=== PATIENT | female | born 1990 | race Caucasian/White ===

== ENCOUNTER 2016-08-23 16:16 | Emergency (ER) | payer OTHER ==
[~2016-08-23] VITALS: Ht 165.1 cm; Wt 63.6 kg
[~2016-08-23 16:16] MED LIST: ABILIFY2 MG PO; ATIVAN 0.50.5 MG/TAB PO; CONCERTA36 MG PO; DESYREL 50MG50 MG PO; DEXTROAMPHETAMI10 M1 PO; DOXYCYCLINE 10100 MG; LAMICTAL200 MG PO; MINIPRESS2 MG PO; NAPROSYN 2250 MG/TAB PO; NORCO 325 MG-51 TAB PO; PROAIR HFA0.09 MG/AC INH; RISPERDAL2 MG PO
[2016-08-23 16:27] VITALS: TEMP 99.2
[2016-08-23] MEDS ORDERED: CLEOCIN HC150 MG/CAP PO (16:49)
[2016-08-23 16:56] VITALS: BP 116/75; PULSE 73
== END 2016-08-23 16:58 | disposition home or self-care (01) ==
LOC: COL.ER 16:16
DX: K04.7 Periapical abscess without sinus (principal)

== ENCOUNTER 2017-01-01 18:22 | Emergency (ER) | payer OTHER ==
[~2017-01-01] VITALS: Ht 165.1 cm; Wt 76.8 kg
[~2017-01-01 18:22] MED LIST changes: +CLEOCIN HC150 MG/CAP PO
[2017-01-01 18:24] VITALS: BP 134/86; PULSE 89; TEMP 98.6
[2017-01-01] MEDS ORDERED: 00186-0372-20 IH (18:38)
[2017-01-01] MEDS ORDERED: PROAIR HFA0.09 MG/AC IH (18:38)
== END 2017-01-01 18:55 | disposition home or self-care (01) ==
LOC: COL.ER 18:22
DX: J06.9 Acute upper respiratory infection, unspecified (principal); J45.909 Unspecified asthma, uncomplicated; F43.10 Post-traumatic stress disorder, unspecified; F31.9 Bipolar disorder, unspecified; F17.210 Nicotine dependence, cigarettes, uncomplicated

== ENCOUNTER 2017-01-25 10:45 | Emergency (ER) | payer OTHER ==
[~2017-01-25] VITALS: Ht 165.1 cm; Wt 72.7 kg
[~2017-01-25 10:45] MED LIST changes: +00186-0372-20 IH; +PROAIR HFA0.09 MG/AC IH
[2017-01-25 10:57] VITALS: BP 125/75; TEMP 98.2
[2017-01-25] MEDS ORDERED: PERIACTIN 4MG TA4 MG PO (11:13)
[2017-01-25 12:00] VITALS: PULSE 88
== END 2017-01-25 12:00 | disposition home or self-care (01) ==
LOC: COL.ER 10:45
DX: M25.571 Pain in right ankle and joints of right foot (principal)

== ENCOUNTER 2017-08-14 13:56 | Emergency (ER) | payer SELFPAY ==
[~2017-08-14] VITALS: Ht 167.6 cm; Wt 86.4 kg
[~2017-08-14 13:56] MED LIST changes: +CONCERTA54 MG PO; +MOBIC15 MG PO; +PERIACTIN 4MG TA4 MG PO; +ZITHROMAX Z PA250 MG PO
[2017-08-14 14:17] VITALS: BP 125/82; PULSE 80; TEMP 98
== END 2017-08-14 17:19 | disposition home or self-care (01) ==
LOC: COL.ER 13:56
DX: S63.501A Unspecified sprain of right wrist, initial encounter (principal); F31.9 Bipolar disorder, unspecified; F43.10 Post-traumatic stress disorder, unspecified; F41.9 Anxiety disorder, unspecified; J45.909 Unspecified asthma, uncomplicated; F90.9 Attention-deficit hyperactivity disorder, unspecified type; Z87.891 Personal history of nicotine dependence; X50.0XXA Overexertion from strenuous movement or load, initial encounter; Y92.89 Other specified places as the place of occurrence of the external cause

== ENCOUNTER 2018-01-07 13:55 | Emergency (ER) | payer OTHER ==
[~2018-01-07] VITALS: Ht 165.1 cm; Wt 90.0 kg
[2018-01-07 14:05] VITALS: BP 141/86; PULSE 93; TEMP 98.6
[2018-01-07] MEDS ORDERED: CATAPRES0.3 MG PO (14:09)
== END 2018-01-07 14:50 | disposition home or self-care (01) ==
LOC: COL.ER 13:55
DX: M77.02 Medial epicondylitis, left elbow (principal); F17.210 Nicotine dependence, cigarettes, uncomplicated; X50.0XXA Overexertion from strenuous movement or load, initial encounter

== ENCOUNTER 2018-07-07 14:03 | Emergency (ER) | payer OTHER ==
[~2018-07-07] VITALS: Ht 165.1 cm; Wt 81.8 kg
[~2018-07-07 14:03] MED LIST changes: +CATAPRES0.3 MG PO
[2018-07-07 14:16] VITALS: BP 135/87; TEMP 99
[2018-07-07] MEDS ORDERED: CLEOCIN HCL300 MG PO (15:14)
[2018-07-07 15:30] VITALS: PULSE 74
== END 2018-07-07 15:32 | disposition home or self-care (01) ==
LOC: COL.ER 14:03
DX: H92.01 Otalgia, right ear (principal); J45.909 Unspecified asthma, uncomplicated; F90.9 Attention-deficit hyperactivity disorder, unspecified type

== ENCOUNTER 2018-10-04 13:21 | Emergency (ER) | payer OTHER ==
[~2018-10-04] VITALS: Ht 165.1 cm; Wt 83.6 kg
[~2018-10-04 13:21] MED LIST changes: +CLEOCIN HCL300 MG PO
[2018-10-04 13:36] VITALS: BP 141/80; PULSE 86; TEMP 98.8
[2018-10-04] MEDS ORDERED: SINGULAIR 110 MG/TAB PO (16:26)
== END 2018-10-04 16:32 | disposition home or self-care (01) ==
LOC: COL.ER 13:21
DX: S83.92XA Sprain of unspecified site of left knee, initial encounter (principal); F43.10 Post-traumatic stress disorder, unspecified; F31.9 Bipolar disorder, unspecified; W00.0XXA Fall on same level due to ice and snow, initial encounter; Y92.009 Unspecified place in unspecified non-institutional (private) residence as the place of occurrence of the external cause
CPT/HCPCS: L1846

== ENCOUNTER 2019-03-05 00:21 | Emergency (ER) | payer OTHER ==
[~2019-03-05] VITALS: Ht 165.1 cm; Wt 88.6 kg
[~2019-03-05 00:21] MED LIST changes: +SINGULAIR 110 MG/TAB PO
[2019-03-05 00:33] VITALS: TEMP 98.7
[2019-03-05 01:48] VITALS: BP 133/93; PULSE 98
== END 2019-03-05 01:48 | disposition home or self-care (01) ==
LOC: COL.ER 00:21
DX: S60.221A Contusion of right hand, initial encounter (principal); F31.9 Bipolar disorder, unspecified; F90.9 Attention-deficit hyperactivity disorder, unspecified type; J45.909 Unspecified asthma, uncomplicated; F43.10 Post-traumatic stress disorder, unspecified; Z88.0 Allergy status to penicillin; Z87.891 Personal history of nicotine dependence; W22.8XXA Striking against or struck by other objects, initial encounter; Y92.009 Unspecified place in unspecified non-institutional (private) residence as the place of occurrence of the external cause

== ENCOUNTER 2019-03-18 21:55 | Emergency (ER) | payer OTHER ==
[~2019-03-18] VITALS: Ht 165.1 cm; Wt 88.6 kg
[2019-03-18 22:04] VITALS: BP 164/92; TEMP 98.1
[2019-03-18 23:07] LABS: BASO % 0.3 % (0.0-2.0); EOS # 0.2 (0.0-0.7); EOS % 1.4 % (0-4.0); GRAN # 6.8 (1.4-6.5); HEMATOCRIT 39.2 % (37.0-47.0); HEMOGLOBIN 12.9 g/dl (12.5-16.0); LYMPH # 2.9 (1.2-3.4); LYMPH % 26.5 % (20.0-51.0); MEAN CELL VOLUME 83 fl (80.0-100.0); MEAN CORPUSCULAR HEMOGLOBIN 27 pg (27.0-31.0); MEAN CORPUSCULAR HGB CONC 33 g/dl (33.0-37.0); MEAN PLATELET VOLUME 10.7 fl (7.4-10.4); MONO # 0.9 (0.1-0.6); MONO % 8.2 % (1.7-9.3); PLATELET COUNT 280 K/mm3 (130-400); RED BLOOD COUNT 4.72 M/mm3 (4.10-5.30); REDCELL DISTRIBUTION WIDTH-CV 13.8 % (11.5-14.5)
[2019-03-18 23:19] LABS: ALBUMIN 4.2 gm/dL (3.5-5.0); BILIRUBIN,TOTAL 0.5 mg/dL (0.0-1.0); CALCIUM 9.3 mg/dL (8.4-10.2); CREATININE, serum 0.73 (0.52-1.25); TOTAL PROTEIN 7.7 gm/dL (6.4-8.2)
[2019-03-18] MEDS ORDERED: FLEXERIL 1010 MG/TAB PO (23:29)
[2019-03-19 00:04] VITALS: PULSE 83
== END 2019-03-19 00:04 | disposition home or self-care (01) ==
LOC: COL.ER 21:55
PROVIDERS: Nurse Practitioner
DX: R25.2 Cramp and spasm (principal); J45.909 Unspecified asthma, uncomplicated; F41.9 Anxiety disorder, unspecified; F31.9 Bipolar disorder, unspecified; F90.9 Attention-deficit hyperactivity disorder, unspecified type; Z88.0 Allergy status to penicillin; Z87.891 Personal history of nicotine dependence

== ENCOUNTER 2019-04-25 18:04 | Emergency (ER) | payer OTHER ==
[~2019-04-25] VITALS: Ht 165.1 cm; Wt 88.6 kg
[~2019-04-25 18:04] MED LIST changes: +FLEXERIL 1010 MG/TAB PO
[2019-04-25 18:11] VITALS: TEMP 98.5
[2019-04-25] MEDS ORDERED: PREDNISONE20 MG PO (19:20)
[2019-04-25 19:57] VITALS: BP 124/85; PULSE 83
== END 2019-04-25 19:59 | disposition home or self-care (01) ==
LOC: COL.ER 18:04
DX: J45.901 Unspecified asthma with (acute) exacerbation (principal); F90.9 Attention-deficit hyperactivity disorder, unspecified type
CPT/HCPCS: J7512

== ENCOUNTER 2019-05-05 08:45 | Emergency (ER) | payer OTHER ==
[~2019-05-05] VITALS: Ht 165.1 cm; Wt 86.4 kg
[~2019-05-05 08:45] MED LIST changes: +PREDNISONE20 MG PO
[2019-05-05 08:49] VITALS: TEMP 98.3
[2019-05-05] MEDS ORDERED: VOLTAREN GEL 1%1 TU TP (09:57)
[2019-05-05 10:05] VITALS: BP 132/81; PULSE 72
== END 2019-05-05 10:05 | disposition home or self-care (01) ==
LOC: COL.ER 08:45
DX: S93.402A Sprain of unspecified ligament of left ankle, initial encounter (principal); S83.92XA Sprain of unspecified site of left knee, initial encounter; F90.9 Attention-deficit hyperactivity disorder, unspecified type; J45.909 Unspecified asthma, uncomplicated; F31.9 Bipolar disorder, unspecified; Z88.0 Allergy status to penicillin; Z87.891 Personal history of nicotine dependence; X50.1XXA Overexertion from prolonged static or awkward postures, initial encounter; Y92.009 Unspecified place in unspecified non-institutional (private) residence as the place of occurrence of the external cause
CPT/HCPCS: J1885

== ENCOUNTER 2019-05-17 23:24 | Emergency (ER) | payer OTHER ==
[~2019-05-17] VITALS: Ht 165.1 cm; Wt 88.6 kg
[~2019-05-17 23:24] MED LIST changes: +VOLTAREN GEL 1%1 TU TP
[2019-05-17 23:27] VITALS: BP 122/78; TEMP 98.4
[2019-05-18 00:56] VITALS: PULSE 100
== END 2019-05-18 00:56 | disposition home or self-care (01) ==
LOC: COL.ER 23:24
DX: S93.402A Sprain of unspecified ligament of left ankle, initial encounter (principal); F31.9 Bipolar disorder, unspecified; F41.9 Anxiety disorder, unspecified; F43.10 Post-traumatic stress disorder, unspecified; Z87.891 Personal history of nicotine dependence; X50.1XXA Overexertion from prolonged static or awkward postures, initial encounter; Y92.009 Unspecified place in unspecified non-institutional (private) residence as the place of occurrence of the external cause

== ENCOUNTER 2019-06-20 14:50 | Emergency (ER) | payer OTHER ==
[~2019-06-20] VITALS: Ht 165.1 cm; Wt 88.6 kg
[2019-06-20 14:56] VITALS: BP 138/87; TEMP 98.6
[2019-06-20] MEDS ORDERED: CEFTIN500 MG PO (15:25)
[2019-06-20 15:30] VITALS: PULSE 87
== END 2019-06-20 15:30 | disposition home or self-care (01) ==
LOC: COL.ER 14:50
DX: H69.93 Unspecified Eustachian tube disorder, bilateral (principal); J45.909 Unspecified asthma, uncomplicated; F43.10 Post-traumatic stress disorder, unspecified; F31.9 Bipolar disorder, unspecified; Z88.0 Allergy status to penicillin; Z87.891 Personal history of nicotine dependence

== ENCOUNTER 2019-08-09 07:39 | Emergency (ER) | payer OTHER ==
[~2019-08-09] VITALS: Ht 165.1 cm; Wt 88.6 kg
[~2019-08-09 07:39] MED LIST changes: +CEFTIN500 MG PO
[2019-08-09 08:05] VITALS: TEMP 98.4
[2019-08-09 09:27] LABS: BASO # 0.1 (0.0-0.2); BASO % 0.6 % (0.0-2.0); EOS # 0.2 (0.0-0.7); EOS % 2.7 % (0-4.0); GRAN # 5.6 (1.4-6.5); GRAN % 66.1 % (42.2-75.2); HEMATOCRIT 38.8 % (37.0-47.0); HEMOGLOBIN 12.3 g/dl (12.5-16.0); LYMPH % 23.9 % (20.0-51.0); MEAN CELL VOLUME 84 fl (80.0-100.0); MEAN CORPUSCULAR HEMOGLOBIN 27 pg (27.0-31.0); MEAN CORPUSCULAR HGB CONC 32 g/dl (33.0-37.0); MEAN PLATELET VOLUME 10.9 fl (7.4-10.4); MONO # 0.5 (0.1-0.6); PLATELET COUNT 231 K/mm3 (130-400); RED BLOOD COUNT 4.61 M/mm3 (4.10-5.30); REDCELL DISTRIBUTION WIDTH-CV 13.6 % (11.5-14.5)
[2019-08-09 09:36] LABS: ALBUMIN 4.1 gm/dL (3.5-5.0); BILIRUBIN,TOTAL 0.4 mg/dL (0.0-1.0); CALCIUM 8.9 mg/dL (8.4-10.2); CREATININE, serum 0.73 (0.52-1.25); POTASSIUM 4.4 mmol/L (3.4-5.0); TOTAL PROTEIN 7.5 gm/dL (6.4-8.2)
[2019-08-09] MEDS ORDERED: PREDNISONE20 MG PO (09:45)
[2019-08-09 10:00] VITALS: BP 123/65; PULSE 71
== END 2019-08-09 10:00 | disposition home or self-care (01) ==
LOC: COL.ER 07:39
PROVIDERS: Physician Assistant
DX: J45.909 Unspecified asthma, uncomplicated (principal); R07.81 Pleurodynia; F31.9 Bipolar disorder, unspecified; F43.10 Post-traumatic stress disorder, unspecified
CPT/HCPCS: J7512

== ENCOUNTER 2020-07-05 14:44 | Emergency (ER) | payer OTHER ==
[~2020-07-05] VITALS: Ht 165.1 cm; Wt 95.5 kg
[2020-07-05 14:52] VITALS: TEMP 97.8
[2020-07-05] MEDS ORDERED: PREDNISONE20 MG PO (17:28)
[2020-07-05 17:40] VITALS: BP 120/89; PULSE 97
[2020-07-05] MEDS ORDERED: ZITHROMAX Z PA250 MG PO (17:41)
== END 2020-07-05 17:41 | disposition home or self-care (01) ==
LOC: COL.ER 14:44
DX: J20.9 Acute bronchitis, unspecified (principal); Z20.828 Contact with and (suspected) exposure to other viral communicable diseases; F17.200 Nicotine dependence, unspecified, uncomplicated; Z88.0 Allergy status to penicillin; Z79.51 Long term (current) use of inhaled steroids
CPT/HCPCS: J7512

== ENCOUNTER 2020-08-29 12:14 | Emergency (ER) | payer OTHER ==
[~2020-08-29] VITALS: Ht 165.1 cm; Wt 95.5 kg
[2020-08-29 12:17] VITALS: TEMP 98.5
[2020-08-29 12:50] LABS: BASO # 0.1 (0.0-0.2); BASO % 0.6 % (0.0-2.0); EOS # 0.2 (0.0-0.7); EOS % 2.7 % (0-4.0); GRAN # 5.7 (1.4-6.5); GRAN % 69.4 % (42.2-75.2); HEMATOCRIT 39.2 % (37.0-47.0); HEMOGLOBIN 12.6 g/dl (12.5-16.0); LYMPH # 1.8 (1.2-3.4); LYMPH % 22.2 % (20.0-51.0); MEAN CELL VOLUME 82 fl (80.0-100.0); MEAN CORPUSCULAR HEMOGLOBIN 26 pg (27.0-31.0); MEAN CORPUSCULAR HGB CONC 32 g/dl (33.0-37.0); MEAN PLATELET VOLUME 10.8 fl (7.4-10.4); MONO # 0.4 (0.1-0.6); MONO % 4.6 % (1.7-9.3); PLATELET COUNT 272 K/mm3 (130-400); RED BLOOD COUNT 4.77 M/mm3 (4.10-5.30); REDCELL DISTRIBUTION WIDTH-CV 13.3 % (11.5-14.5)
[2020-08-29] MEDS ORDERED: ALBUTEROL0.83 MG/ML IH (14:00)
[2020-08-29 14:15] VITALS: BP 115/72; PULSE 86
== END 2020-08-29 14:15 | disposition home or self-care (01) ==
LOC: COL.ER 12:14
PROVIDERS: Physician Assistant
DX: J98.01 Acute bronchospasm (principal); J45.909 Unspecified asthma, uncomplicated; F32.9 Major depressive disorder, single episode, unspecified; F90.9 Attention-deficit hyperactivity disorder, unspecified type; F41.9 Anxiety disorder, unspecified; Z88.0 Allergy status to penicillin; Z87.891 Personal history of nicotine dependence; Z79.52 Long term (current) use of systemic steroids

== ENCOUNTER 2021-01-03 00:06 | Emergency (ER) | payer OTHER ==
[~2021-01-03] VITALS: Ht 165.1 cm; Wt 90.9 kg
[~2021-01-03 00:06] MED LIST changes: +ALBUTEROL0.83 MG/ML IH
[2021-01-03 00:16] VITALS: TEMP 97.5
[2021-01-03] MEDS ORDERED: CLEOCIN HCL300 MG PO (00:40)
[2021-01-03] MEDS ORDERED: IBU800 M1 PO (00:49)
[2021-01-03 01:00] VITALS: BP 132/80; PULSE 78
[2021-01-04] MEDS ORDERED: PERCOCET 325 MG1 TA2 PO (22:14)
[2021-03-27] MEDS ORDERED: CLEOCIN HCL300 MG PO (18:35)
== END 2021-01-03 01:00 | disposition home or self-care (01) ==
LOC: COL.ER 00:06
DX: K02.9 Dental caries, unspecified (principal); J45.909 Unspecified asthma, uncomplicated; F17.210 Nicotine dependence, cigarettes, uncomplicated; Z79.51 Long term (current) use of inhaled steroids
CPT/HCPCS: J1885

== ENCOUNTER 2021-01-04 19:32 | Emergency (ER) | payer OTHER ==
[~2021-01-04] VITALS: Ht 165.1 cm; Wt 90.9 kg
[~2021-01-04 19:32] MED LIST changes: +IBU800 M1 PO
[2021-01-04 20:44] VITALS: TEMP 98.9
[2021-01-04] MEDS ORDERED: PERCOCET 325 MG1 TA2 PO (22:14)
[2021-01-04 22:42] VITALS: PULSE 85
[2021-03-27] MEDS ORDERED: CLEOCIN HCL300 MG PO (18:35)
== END 2021-01-04 22:42 | disposition home or self-care (01) ==
LOC: COL.ER 19:32
DX: K05.20 Aggressive periodontitis, unspecified (principal); J45.909 Unspecified asthma, uncomplicated; Z87.891 Personal history of nicotine dependence; Z79.52 Long term (current) use of systemic steroids

== ENCOUNTER 2021-05-08 15:21 | Emergency (ER) | payer OTHER ==
[~2021-05-08] VITALS: Ht 165.1 cm; Wt 97.7 kg
[~2021-05-08 15:21] MED LIST changes: +PERCOCET 325 MG1 TA2 PO
[2021-05-08 15:29] VITALS: TEMP 97.8
[2021-05-08 16:17] VITALS: BP 151/86; PULSE 73
== END 2021-05-08 16:17 | disposition home or self-care (01) ==
LOC: COL.ER 15:21
DX: S83.92XA Sprain of unspecified site of left knee, initial encounter (principal); W19.XXXA Unspecified fall, initial encounter; Y93.01 Activity, walking, marching and hiking

== ENCOUNTER 2021-08-01 20:34 | Emergency (ER) | payer OTHER ==
[~2021-08-01] VITALS: Ht 165.1 cm; Wt 97.7 kg
[2021-08-01] MEDS ORDERED: ULTRAM 50MG TAB50 MG PO (21:53)
[2021-08-01] MEDS ORDERED: CEPHALEXIN500 M1 PO (21:53)
[2021-08-01 22:04] VITALS: BP 147/87; PULSE 78; TEMP 98.7
== END 2021-08-01 22:04 | disposition home or self-care (01) ==
LOC: COL.ER 20:34
DX: K02.9 Dental caries, unspecified (principal); J45.909 Unspecified asthma, uncomplicated; Z79.52 Long term (current) use of systemic steroids; Z79.899 Other long term (current) drug therapy

== ENCOUNTER 2021-08-07 19:25 | Emergency (ER) | payer OTHER ==
[~2021-08-07] VITALS: Ht 165.1 cm; Wt 100.0 kg
[~2021-08-07 19:25] MED LIST changes: +CEPHALEXIN500 M1 PO; +ULTRAM 50MG TAB50 MG PO
[2021-08-07 19:31] VITALS: TEMP 97.2
[2021-08-07 20:21] VITALS: BP 134/99; PULSE 80
== END 2021-08-07 20:21 | disposition home or self-care (01) ==
LOC: COL.ER 19:25
DX: K02.9 Dental caries, unspecified (principal); Z88.0 Allergy status to penicillin
CPT/HCPCS: J1885

== ENCOUNTER 2021-08-22 08:20 | Emergency (ER) | payer OTHER ==
[~2021-08-22] VITALS: Ht 165.1 cm; Wt 97.7 kg
[2021-08-22 08:25] VITALS: BP 121/81; TEMP 98.1
[2021-08-22 09:46] VITALS: PULSE 88
== END 2021-08-22 09:46 | disposition home or self-care (01) ==
LOC: COL.ER 08:20
DX: S80.02XA Contusion of left knee, initial encounter (principal); Z98.890 Other specified postprocedural states; X50.1XXA Overexertion from prolonged static or awkward postures, initial encounter; W01.0XXA Fall on same level from slipping, tripping and stumbling without subsequent striking against object, initial encounter

== ENCOUNTER 2022-02-17 13:56 | Outpatient (RCR) | payer OTHER ==
[2022-02-19] MEDS ORDERED: PREDNISONE20 MG PO (05:05)
== END 2022-03-01 | disposition home or self-care (01) ==
LOC: WSOH
DX: S39.012D Strain of muscle, fascia and tendon of lower back, subsequent encounter (principal); Y99.0 Civilian activity done for income or pay; F41.9 Anxiety disorder, unspecified; F90.9 Attention-deficit hyperactivity disorder, unspecified type; G43.909 Migraine, unspecified, not intractable, without status migrainosus; J45.909 Unspecified asthma, uncomplicated; F39 Unspecified mood [affective] disorder

== ENCOUNTER 2022-02-19 04:43 | Emergency (ER) | payer OTHER ==
[~2022-02-19] VITALS: Ht 165.1 cm; Wt 100.0 kg
[2022-02-19 04:48] VITALS: BP 125/90
[2022-02-19] MEDS ORDERED: PREDNISONE20 MG PO (05:05)
[2022-02-19 05:16] VITALS: PULSE 95; TEMP 97.8
== END 2022-02-19 05:16 | disposition home or self-care (01) ==
LOC: COL.ER 04:43
DX: J45.901 Unspecified asthma with (acute) exacerbation (principal)
CPT/HCPCS: J7512

== ENCOUNTER 2022-06-03 08:05 | Emergency (ER) | payer OTHER ==
[~2022-06-03] VITALS: Ht 165.1 cm; Wt 100.0 kg
[2022-06-03 08:10] VITALS: TEMP 98.2
[2022-06-03 08:22] LABS: BASO # 0.1 K/mm3 (0.0-0.2); BASO % 0.7 % (0.0-2.0); EOS # 0.4 K/mm3 (0.0-0.7); EOS % 4.3 % (0.0-4.0); GRAN # 5.7 K/mm3 (1.4-6.5); GRAN % 62.9 % (42.2-75.2); HEMATOCRIT 39.6 % (37.0-47.0); HEMOGLOBIN 13.2 g/dl (12.5-16.0); LYMPH # 2.2 K/mm3 (1.2-3.4); LYMPH % 24.6 % (20.0-51.0); MEAN CELL VOLUME 81 fl (80.0-100.0); MEAN CORPUSCULAR HEMOGLOBIN 27 pg (27-31); MEAN CORPUSCULAR HGB CONC 33 g/dl (33.0-37.0); MEAN PLATELET VOLUME 10.4 fl (7.4-10.4); MONO # 0.6 K/mm3 (0.1-0.6); MONO % 6.9 % (1.7-9.3); PLATELET COUNT 321 K/mm3 (130-400); RED BLOOD COUNT 4.89 M/mm3 (4.10-5.30); REDCELL DISTRIBUTION WIDTH-CV 13.5 % (11.5-14.5)
[2022-06-03 08:39] LABS: ALANINE AMINOTRANSFERASE 20 U/L (0-55); ALKALINE PHOSPHATASE 97 U/L (40-150); ANION GAP 9 mmol/L (7-16); AST,SGOT 16 U/L (5-34); BILIRUBIN,TOTAL 0.5 mg/dL (0.2-1.2); BLOOD UREA NITROGEN 9 mg/dL (7-19); CALCIUM 9.1 mg/dL (8.4-10.2); CARBON DIOXIDE 21 mmol/L (22-29); CHLORIDE 108 mmol/L (98-107); CREATININE, serum 0.82 mg/dL (0.57-1.11); GLUCOSE 99 mg/dL (70-99); SODIUM 138 mmol/L (136-145); TOTAL PROTEIN 8.1 gm/dL (6.2-8.1)
[2022-06-03 08:48] LABS: TROPONIN-I < 0.010 ng/mL (0.00-0.033)
[2022-06-03 09:12] VITALS: BP 148/94; PULSE 88
== END 2022-06-03 09:12 | disposition home or self-care (01) ==
LOC: COL.ER 08:05
PROVIDERS: Emergency Medicine
DX: R07.89 Other chest pain (principal)

== ENCOUNTER 2024-04-23 11:11 | Emergency (ER) | payer OTHER ==
[~2024-04-23] VITALS: Ht 165.1 cm; Wt 115.5 kg
[~2024-04-23 11:11] MED LIST changes: +ELIQUIS 5MG PO
[2024-04-23 11:26] VITALS: TEMP 98.5
[2024-04-23 12:25] LABS: BASO # 0.1 K/mm3 (0.0-0.2); BASO % 0.5 % (0.0-2.0); EOS # 0.1 K/mm3 (0.0-0.7); EOS % 1.2 % (0.0-4.0); GRAN # 6.7 K/mm3 (1.4-6.5); GRAN % 66.5 % (42.2-75.2); HEMATOCRIT 48.3 % (37.0-47.0); HEMOGLOBIN 15.8 g/dl (12.5-16.0); LYMPH # 2.5 K/mm3 (1.2-3.4); LYMPH % 25.2 % (20.0-51.0); MEAN CELL VOLUME 79 fl (80.0-100.0); MEAN CORPUSCULAR HEMOGLOBIN 26 pg (27-31); MEAN CORPUSCULAR HGB CONC 33 g/dl (33.0-37.0); MEAN PLATELET VOLUME 11.1 fl (7.4-10.4); MONO # 0.6 K/mm3 (0.1-0.6); MONO % 5.8 % (1.7-9.3); PLATELET COUNT 331 K/mm3 (130-400); RED BLOOD COUNT 6.09 M/mm3 (4.10-5.30); REDCELL DISTRIBUTION WIDTH-CV 15.3 % (11.5-14.5)
[2024-04-23 12:52] LABS: BILIRUBIN,TOTAL 0.7 mg/dL (0.2-1.2); CALCIUM 9.7 mg/dL (8.4-10.2); CREATININE, serum 0.92 mg/dL (0.57-1.11); POTASSIUM 4.1 mEq/L (3.5-4.5); TOTAL PROTEIN 8.1 g/dl (6.2-8.1)
[2024-04-23] MEDS ORDERED: NS 100 ML IV SCH (13:36)
[2024-04-23] MEDS ORDERED: Iohexol 350 - 100 ML VIAL IV ONE (13:36)
[2024-04-23 14:16] VITALS: BP 119/83; PULSE 102
== END 2024-04-23 14:22 | disposition home or self-care (01) ==
LOC: COL.ER 11:11
PROVIDERS: Nurse Practitioner
DX: R07.81 Pleurodynia (principal); I82.402 Acute embolism and thrombosis of unspecified deep veins of left lower extremity; Z79.01 Long term (current) use of anticoagulants
CPT/HCPCS: Q9967

== ENCOUNTER 2024-05-03 11:18 | Emergency (ER) | payer OTHER ==
[~2024-05-03] VITALS: Ht 165.1 cm; Wt 110.9 kg
[2024-05-03 11:29] VITALS: TEMP 98.2
[2024-05-03] MEDS ORDERED: ELIQUIS 5MG PO (12:42)
[2024-05-03 12:54] VITALS: BP 134/88; PULSE 86
== END 2024-05-03 12:54 | disposition home or self-care (01) ==
LOC: COL.ER 11:18
DX: M79.605 Pain in left leg (principal); Z79.01 Long term (current) use of anticoagulants; Z86.718 Personal history of other venous thrombosis and embolism